=== PATIENT | female | born 1950 | race Caucasian/White ===

== ENCOUNTER 2018-08-31 08:58 | Outpatient (CLI) | payer MEDICARE, MEDICAID ==
[2018-08-31 10:51] LABS: #Eosinphils 0.3 thou/uL (0.0-0.7); #Monocytes 0.8 thou/uL (0.11-0.59); #Neutrophils 6.4 thou/uL (1.40-6.50); %Basophils 0.1 % (0.0-1.0); %Eosinophils 3.6 % (0.0-10.0); %Lymphocytes 20.8 % (21.0-51.0); %Monocytes 8.6 % (0.0-10.0); %Neutrophils 66.8 % (42.0-75.0); Hemoglobin 13.7 g/dL (12.0-16.0); Mean Corpuscular HGB CONC 33.3 g/dL (32.0-36.0); Mean Corpuscular Hemoglobin 32.8 pg (27.0-31.0); Mean Corpuscular Volume 98.5 fL (78.0-98.0); Mean Platelet Volume 7.4 fL (7.4-10.4); Platelet Count 309 thou/uL (130-400); RBC Distribution Width 11.7 % (11.5-14.5); Red Blood Cell (RBC) Count 4.18 mill/uL (4.20-5.40); White Blood Cell (WBC) Count 9.5 thou/uL (4.8-10.8)
[2018-08-31 10:55] LABS: INR-International Normal Ratio 1.1; PTT 25.8 SEC (22.9-36.1); Prothrombin Time 13.9 SEC (12.0-14.7)
[2018-08-31 11:14] LABS: ALT (SGPT) 30 U/L (8-55); AST (SGOT) 25 U/L (5-34); Albumin 3.9 g/dL (3.4-4.8); Alkaline Phosphatase 115 U/L (40-150); Anion Gap 14 mmol/L (10-20); BUN (Urea Nitrogen) 13 mg/dL (9.8-20.1); Bilirubin, Total 1.3 mg/dL (0.2-1.2); Calc. Creatinine Clearance 0 mL/min (70-130); Calcium 9.1 mg/dL (7.8-10.44); Carbon Dioxide 27 mmol/L (23-31); Chloride 102 mmol/L (98-107); Estimated GFR-MDRD 72; Globulin 3.1 g/dL (2.4-3.5); Glucose 133 mg/dL (80-115); Potassium 3.5 mmol/L (3.5-5.1); Sodium 139 mmol/L (136-145)
== END 2018-08-31 08:59 | disposition home or self-care (01) ==
LOC: LABBT 08:58
PROVIDERS: ATTEND Internal Medicine Cardiovascular Disease
DX: Z01.812 Encounter for preprocedural laboratory examination (principal)
CPT/HCPCS: 80053; 85025; 85610; 85730

== ENCOUNTER → 2018-09-01 | Day surgery (SDC) | payer MEDICARE, MEDICAID ==
[2018-08-31 09:27] VITALS: BMI 35.4
[~2018-09-01] MED LIST: Diazepam 5 MG TAB ONE; Fentanyl 100 MCG/2 ML VIAL ONE; Iopamidol 370 76% 100 ML VIAL ONE; Midazolam HCl 2 mg/2 ml Vial ONE; Nitroglycerin 100MG/250ML BOT 250 ML ONE; Nitroglycerin 4.9 GM Bottle ONE
== END ==
LOC: CCL 06:16
PROVIDERS: ATTEND Internal Medicine Cardiovascular Disease
PROC: 4A023N7 Measurement of Cardiac Sampling and Pressure, Left Heart, Percutaneous Approach (ICD-10-PCS; principal; 2018-09-01)
PROC: B2111ZZ Fluoroscopy of Multiple Coronary Arteries using Low Osmolar Contrast (ICD-10-PCS; 2018-09-01)
DX: I25.10 Atherosclerotic heart disease of native coronary artery without angina pectoris (principal); I10 Essential (primary) hypertension; I25.2 Old myocardial infarction; E78.00 Pure hypercholesterolemia, unspecified; J98.9 Respiratory disorder, unspecified; G47.30 Sleep apnea, unspecified; Z88.0 Allergy status to penicillin; Z95.5 Presence of coronary angioplasty implant and graft
CPT/HCPCS: 76942; 93458; 99152; C1769; J1644; J2250; J3010; Q9967

== ENCOUNTER 2018-09-07 01:52 | Outpatient (CLI) | payer MEDICARE, MEDICAID ==
--- NOTE | 2018-09-14 17:44 | EKG ---
Test Reason : Blood Pressure : / mmHG Vent. Rate : 072 BPM Atrial Rate : 072 BPM P-R Int : 124 ms QRS Dur : 080 ms QT Int : 402 ms P-R-T Axes : 001 031 048 degrees QTc Int : 440 ms Normal sinus rhythm Low voltage QRS Cannot rule out Anterior infarct , age undetermined Abnormal ECG When compared with ECG of 23-JAN-2016 06:29, Nonspecific T wave abnormality no longer evident in Inferior leads T wave inversion no longer evident in Anterolateral leads QT has shortened Confirmed by BRANDON ARITA (2) on 09/14/2018 5:43:58 PM Referred By: RADHA Confirmed By:BRANDON ARITA
== END 2018-09-07 01:53 | disposition home or self-care (01) ==
LOC: LABBT 01:52
PROVIDERS: ATTEND Thoracic Surgery (Cardiothoracic Vascular Surgery)
DX: Z01.818 Encounter for other preprocedural examination (principal); I25.10 Atherosclerotic heart disease of native coronary artery without angina pectoris
CPT/HCPCS: 93005; 93010

== ENCOUNTER 2018-09-07 10:30 | Inpatient (IN) | payer MEDICARE, MEDICAID ==
[2018-09-08] MEDS ORDERED: Albumin 5% 500 ML ONE ×2 (06:30→10:48)
[2018-09-08] MEDS ORDERED: Vecuronium 10 MG VIAL ONE ×2 (06:34→14:38)
[2018-09-08] MEDS ORDERED: Midazolam HCl 5 mg/5 ml Vial ONE (06:34)
[2018-09-08] MEDS ORDERED: Dexmedetomidine 200 MCG/2 ML VIAL ONE (06:34)
[2018-09-08] MEDS ORDERED: Midazolam HCl 2 mg/2 ml Vial ONE (06:34)
[2018-09-08] MEDS ORDERED: Fentanyl 100 MCG/2 ML VIAL ONE (06:34)
[2018-09-08] MEDS ORDERED: Clindamycin/D5W 900 mg/50 ml Premix Bag ONE (06:44)
[2018-09-08] MEDS ORDERED: Levofloxacin 500 mg/D5W 100 ml Premix Bag ONE (06:44)
[2018-09-08] MEDS ORDERED: Heparin 10,000 UNITS/1 ML VIAL 30,000 UNITS in Sodium Chloride 0.9% 1,000 ML FS SCH (07:00)
[2018-09-08] MEDS ORDERED: Insulin Regular 300 UNITS/3 ML VIAL ONE (07:57)
[2018-09-08 08:11] LABS: Platelet Count 315 thou/uL (130-400)
[2018-09-08 08:17] LABS: EPI 115 SEC (67-199)
[2018-09-08] MEDS ORDERED: Fentanyl 100 MCG/2 ML VIAL SLOW IVP PRN (10:52)
[2018-09-08] MEDS ORDERED: Guaifenesin DM 100-10/5 ML UDCUP PO PRN (10:52)
[2018-09-08] MEDS ORDERED: DOPamine 400 MG/D5W 250 ML 250 ML IVPB PRN (10:52)
[2018-09-08] MEDS ORDERED: hydrALAZINE 20 MG/ML VIAL SLOW IVP PRN (10:52)
[2018-09-08] MEDS ORDERED: Norepinephrine 8 MG/0.9% NS 250 ML IVPB PRN (10:52)
[2018-09-08] MEDS ORDERED: Mag-Al 1200 mg/1200 mg/30 ML UDCUP PO PRN (10:52)
[2018-09-08] MEDS ORDERED: Bisacodyl 10 MG SUPP PR PRN (10:52)
[2018-09-08] MEDS ORDERED: Bisacodyl 5 MG TAB PO PRN (10:52)
[2018-09-08] MEDS ORDERED: PROVENTIL INHALER 6.7 G (200 INHALATIONS) INH PRN (10:52)
[2018-09-08] MEDS ORDERED: Nitroglycerin 50 MG/250 ML BOT 250 ML IVPB PRN (10:52)
[2018-09-08] MEDS ORDERED: Magnesium 2 GM/50 ML 2 GM in Premix Bag 1 BAG IVPB SCH (10:52)
[2018-09-08] MEDS ORDERED: Hetastarch 6% 500 ML 500 ML IVPB PRN (10:52)
[2018-09-08] MEDS ORDERED: Post-Op Insulin Drip Protocol IVPB ONE (10:52)
[2018-09-08] MEDS ORDERED: Acetaminophen 325 MG TAB PO PRN (10:52)
[2018-09-08] MEDS ORDERED: HYDROcodone/Acetaminophen 5/325 mg Tablet PO PRN (10:52)
[2018-09-08] MEDS ORDERED: Ondansetron PF 4 MG/2 ML Vial IVP PRN (10:52)
[2018-09-08 11:05] LABS: #Eosinphils 0.4 thou/uL (0.0-0.7); #Lymphocytes 2.9 thou/uL (1.20-3.40); #Monocytes 0.9 thou/uL (0.11-0.59); %Basophils 0.2 % (0.0-1.0); %Eosinophils 2.6 % (0.0-10.0); %Lymphocytes 19.4 % (21.0-51.0); %Monocytes 5.8 % (0.0-10.0); %Neutrophils 72.1 % (42.0-75.0); Mean Corpuscular HGB CONC 32.9 g/dL (32.0-36.0); Mean Corpuscular Hemoglobin 32.6 pg (27.0-31.0); Mean Corpuscular Volume 99.3 fL (78.0-98.0); Mean Platelet Volume 6.9 fL (7.4-10.4); Platelet Count 285 thou/uL (130-400); RBC Distribution Width 11.9 % (11.5-14.5); Red Blood Cell (RBC) Count 3.68 mill/uL (4.20-5.40); White Blood Cell (WBC) Count 15.2 thou/uL (4.8-10.8)
[2018-09-08 11:07] LABS: INR-International Normal Ratio 1.3; PTT 29.3 SEC (22.9-36.1); Prothrombin Time 16.5 SEC (12.0-14.7)
--- NOTE | 2018-09-08 11:07 | RAD ---
RADIOGRAPH CHEST 1 VIEW: DATE: 09/08/2018 TIME: 10:37 AM HISTORY: 68-year-old female status post open heart surgery COMPARISON: 01/20/2016 FINDINGS: All of the following findings are new compared to the prior study: Left upper lobe streaky pulmonary densities arising from hilum extending laterally, probably subsegme ntal atelectasis. Haziness of right hemidiaphragmatic shadow, probably right pleural effusion and/or right basilar atel ectasis. Right upper lobe is relatively clear. No pneumothorax is identified, but this is a supine image which would be insensitive for pneumothorax detection. Right subclavian central line with distal tip overlying right atrium. Sternotomy wires. Right basilar chest tube takes a loop and hairpin turn at the right medial lower liza ng zone, then descends and extends laterally overlying the right upper abdomen. Right paramedian ascending chest tube. Entire cardiac mediastinal silhouette is widened and shaggy. IMPRESSION: Status post recent open heart surgery with life support lines as above, and pulmonary and pleural acu te findings.
[2018-09-08] MEDS ORDERED: Morphine 2 MG/ML SYRINGE SLOW IVP PRN (11:09)
[2018-09-08] MEDS ORDERED: Dextrose 50% Abboject 50 ML SYRINGE SLOW IVP PRN (11:12)
[2018-09-08] MEDS ORDERED: HUMULIN R 100 UNITS in Sodium Chloride 0.9% 100 ML IVPB SCH (11:12)
[2018-09-08] MEDS ORDERED: Dextrose 5% in Water 1,000 ML IV PRN (11:12)
[2018-09-08 11:23] LABS: Anion Gap 13 mmol/L (10-20); BUN (Urea Nitrogen) 9 mg/dL (9.8-20.1); Calc. Creatinine Clearance 114 mL/min (70-130); Calcium 8.3 mg/dL (7.8-10.44); Carbon Dioxide 20 mmol/L (23-31); Chloride 109 mmol/L (98-107); Estimated GFR-MDRD 79; Glucose 129 mg/dL (80-115); Potassium 4.1 mmol/L (3.5-5.1); Sodium 138 mmol/L (136-145)
[2018-09-08 11:34] LABS: Actual Bicarbonate (HCO3a) 21.5 mEq/L (22-28); Base Excess (BEa) -4.9 mEq/L (-2.0 to +3.0); CO2 Tension 45.4 mmHg (35.0-45.0); Calcium, Ionized 1.05 mmol/L (1.12-1.30); Carboxyhemoglobin (COHb) 0.3 gm% (0.0-3.0); Hemoglobin (Hb) 10.7 g/dL (12.0-16.0); O2 Tension (PaO2) 93.2 mmHg (> 80.0); Potassium - ABG Lab 3.61 mmol/L (3.70-5.30); pH, Arterial 7.29 (7.35-7.45)
[2018-09-08 11:35] LABS: Puncture Site ALINE
[2018-09-08] MEDS: Sodium Chloride 0.9% 1,000 ML IV SCH ×2 (11:39→20:59)
[2018-09-08] MEDS ORDERED: Ketorolac Tromethamine 30 MG/ML VIAL IVP SCH (12:00)
[2018-09-08] MEDS: Fentanyl 100 MCG/2 ML VIAL SLOW IVP PRN ×2 (13:14→21:04)
[2018-09-08] MEDS: Clindamycin/D5W 900 MG in Premix Bag 1 BAG IVPB SCH ×2 (13:54→19:35)
[2018-09-08] MEDS ORDERED: Glycopyrrolate 0.2 MG/ML 5 ML SYRINGE ONE (14:38)
[2018-09-08] MEDS ORDERED: Protamine Sulfate 250 MG/25 ML VIAL ONE (14:38)
[2018-09-08] MEDS ORDERED: Thrombin 5000 UNITS/5 ML VIAL ONE (14:38)
[2018-09-08] MEDS ORDERED: Mannitol 12.5 GM/50 ML ONE (14:38)
[2018-09-08] MEDS ORDERED: ePHEDrine 50 MG/ML VIAL ONE (14:38)
[2018-09-08] MEDS ORDERED: Potassium Chloride 60 MEQ/30 ML VIAL ONE (14:38)
[2018-09-08] MEDS ORDERED: Calcium Chloride 1 GM/10 ML Abboject SYRINGE ONE (14:38)
[2018-09-08] MEDS ORDERED: Dexamethasone 20 MG/5 ML VIAL ONE (14:38)
[2018-09-08] MEDS ORDERED: Aminocaproic Acid 5 GM/20 ML VIAL ONE (14:38)
[2018-09-08] MEDS ORDERED: Magnesium 5 GM/10 ML VIAL ONE (14:38)
[2018-09-08] MEDS ORDERED: Ondansetron PF 4 MG/2 ML Vial ONE (14:38)
[2018-09-08] MEDS ORDERED: Sodium Bicarb 50 MEQ/50 ML VIAL ONE (14:38)
[2018-09-08] MEDS ORDERED: Papaverine 60 MG/2 ML VIAL ONE (14:38)
[2018-09-08] MEDS ORDERED: Esmolol 100 MG/10 ML VIAL ONE (14:38)
[2018-09-08] MEDS ORDERED: Heparin 5,000 UNITS/ML VIAL ONE (14:38)
[2018-09-08] MEDS ORDERED: Heparin 30,000 units/30 ml VIAL ONE (14:38)
[2018-09-08] MEDS ORDERED: Nitroglycerin 50 MG/250 ML BOT ONE (14:38)
[2018-09-08] MEDS ORDERED: Phenylephrine HCL 10 MG/ML VIAL ONE (14:38)
[2018-09-08] MEDS ORDERED: Ketorolac Tromethamine 30 MG/ML VIAL ONE (14:38)
[2018-09-08] MEDS ORDERED: Lidocaine 2% PF 100 mg/5 ml Syringe ONE (14:38)
[2018-09-08] MEDS: Ketorolac Tromethamine 30 MG/ML VIAL IVP SCH ×2 (15:39→22:03)
--- NOTE | 2018-09-08 16:35 | OP ---
DATE OF PROCEDURE: 09/08/2018 PROCEDURES PERFORMED: Coronary artery disease. PROCEDURE PERFORMED: Coronary artery bypass graft x1, left internal mammary artery to the mid left anterior descending. ANESTHESIA: General. FINDINGS: The patient had a large mammary with good flow and an LAD that probably measured 1.5 mm. DESCRIPTION OF PROCEDURE: After adequate anesthesia had been obtained, the patient was prepped and draped. Midline sternotomy incision was carried out. Sternum was divided with a saw, entering the right pleura and one small area distally. Following mammary retractor placement, the left internal mammary artery was harvested, dividing it distally after full heparinization and treating it with intraluminal papaverine. It was then passed posterior to the thymus gland and brought through a hole in the pericardium. Aorta and right atrium were cannulated with aorta just above the pericardial reflection and the aorta being short. Right atrial appendage was rudimentary. Cardiopulmonary bypass was instituted, and the aorta was crossclamped and a liter of cold blood cardioplegia given through the aortic root. Following this, DALY to LAD anastomosis was carried out with a 7-0 Prolene suture. Following completion of this, anastomosis was hemostatic and the pedicle was secured to the myocardium. Cross-clamp was removed and the aortic cardioplegic cannulation site was oversewn with a 5-0 Prolene suture. The patient was weaned from cardiopulmonary bypass. Cannula was removed and the aortic cannula site secured with a Prolene suture. Mediastinal and bilateral pleural drains were placed. Sternum was reapproximated with #7 interrupted wire using vancomycin paste on the sternal edges, platelet rich blood and platelet poor plasma. Subcutaneous tissue and skin were closed in layers. Job ID: [id number]
[2018-09-08 17:13] LABS: Hemoglobin 11.8 g/dL (12.0-16.0)
[2018-09-08 17:24] LABS: Potassium 3.9 mmol/L (3.5-5.1)
[2018-09-08] MEDS: Potassium Chloride 20 MEQ/100 ML PREMIX BAG IVPB PRN (18:27)
[2018-09-08] MEDS: Famotidine/PF 20 mg/2ml Vial SLOW IVP SCH (19:35)
[2018-09-08] MEDS: Atorvastatin Calcium 40 MG TAB PO SCH (20:59)
[2018-09-09] MEDS: Fentanyl 100 MCG/2 ML VIAL SLOW IVP PRN ×4 (00:40→08:18)
[2018-09-09] MEDS: Clindamycin/D5W 900 MG in Premix Bag 1 BAG IVPB SCH ×2 (02:28→08:19)
[2018-09-09] MEDS: Ketorolac Tromethamine 30 MG/ML VIAL IVP SCH ×4 (05:03→22:10)
[2018-09-09 05:57] LABS: #Monocytes 1.3 thou/uL (0.11-0.59); #Neutrophils 11.7 thou/uL (1.40-6.50); %Basophils 0.3 % (0.0-1.0); %Eosinophils 0.2 % (0.0-10.0); %Lymphocytes 7.1 % (21.0-51.0); %Monocytes 9.1 % (0.0-10.0); %Neutrophils 83.2 % (42.0-75.0); Hemoglobin 10.5 g/dL (12.0-16.0); Mean Corpuscular HGB CONC 32.8 g/dL (32.0-36.0); Mean Platelet Volume 7.3 fL (7.4-10.4); Platelet Count 249 thou/uL (130-400); RBC Distribution Width 12.1 % (11.5-14.5); Red Blood Cell (RBC) Count 3.18 mill/uL (4.20-5.40)
[2018-09-09 06:15] LABS: Anion Gap 12 mmol/L (10-20); BUN (Urea Nitrogen) 14 mg/dL (9.8-20.1); Calc. Creatinine Clearance 121 mL/min (70-130); Calcium 7.6 mg/dL (7.8-10.44); Carbon Dioxide 20 mmol/L (23-31); Chloride 110 mmol/L (98-107); Estimated GFR-MDRD 80; Glucose 123 mg/dL (80-115); Sodium 138 mmol/L (136-145)
[2018-09-09] MEDS: Sodium Chloride 0.9% 1,000 ML IV SCH ×2 (07:50→18:51)
--- NOTE | 2018-09-09 07:57 | RAD ---
1 VIEW CHEST: Date: 09/09/18 HISTORY: Status post open heart surgery. COMPARISON: 09/08/18. FINDINGS: Sternotomy wires and right-sided vascular catheter redemonstrated. Stable right-sided chest tube and mediastinal drainage catheter identified. Stable configuration of the cardiac silhouette. Lung volume s are diminished with resultant bibasilar atelectasis. No pneumothorax. IMPRESSION: Findings compatible with recent open heart surgery. POS: OFF
[2018-09-09] MEDS ORDERED: Aspirin 325 MG TAB PO SCH (09:00)
[2018-09-09] MEDS: Polyethylene Glycol 3350 17 GM Packet PO SCH (09:26)
[2018-09-09] MEDS: Famotidine/PF 20 mg/2ml Vial SLOW IVP SCH ×2 (09:26→20:48)
[2018-09-09] MEDS: HYDROcodone/Acetaminophen 5/325 mg Tablet PO PRN ×2 (09:42→20:49)
[2018-09-09] MEDS ORDERED: Insulin Glargine 6 UNITS in Pre-Filled Syringe 1 EACH SC PRN (11:40)
--- NOTE | 2018-09-09 12:29 | CON ---
DATE OF CONSULTATION: HISTORY OF PRESENT ILLNESS: This is a 68-year-old female with history of coronary artery disease, CABG back in 2016, who for about the last couple of weeks had had increasing shortness of breath and some occasional chest pain. She went and got a stress test, was found to have a blockage. They went to try and do a cath last Thursday and tried to put a stent in, but were unsuccessful, so she is postop day one for coronary artery bypass graft x1 in the left internal mammary artery to the mid left anterior descending. The patient reports having some pain, but pain controlled with pain medication. She denies any fever or chills. Denies any acute events overnight. Denies any nausea, vomiting, diarrhea, or constipation. She denies any leg swelling. Chest tube is still in place, draining. Per nurse in no other acute events overnight. PAST MEDICAL HISTORY: She has hypertension, hyperlipidemia, history of coronary artery disease status post CABG back in 2016, asthma, sleep apnea. She also has prediabetes, irritable bowel disease, diarrhea. PAST SURGICAL HISTORY: Include a cholecystectomy back in 2008 and history of CABG back in 2016, history of cardiac cath with stent. ALLERGIES: ALLERGIC TO PENICILLINS. FAMILY HISTORY: Includes hypertension, coronary artery disease, COPD, and end- stage renal disease. SOCIAL HISTORY: She denies smoking, illicit drug use, and reports occasional alcohol use. PHYSICAL EXAMINATION: VITAL SIGNS: Blood pressure 130/57, heart rate of 84, respiratory rate of 23, O2 saturation 100% on room air, and temperature 99.1. GENERAL: The patient is alert and oriented. The patient is in some acute distress from pain. She had recently just received pain medication. HEENT: Atraumatic and normocephalic. PERRLA. Conjunctiva not injected. NECK: Supple. No lymphadenopathy. No thyromegaly. No JVD. CARDIAC: Dressing is in place. No drainage or sign of infection noted. Dressing dry and appropriately tender to palpation. Regular rate and rhythm. No murmurs or gallops noted. Chest tube in place, draining. PULMONARY: Some decreased breath sounds. No crackles or wheezes noted. GI: Abdomen nondistended, nontender to palpation. Bowel sounds positive. No sign of masses. EXTREMITIES: Moves all extremities. No edema noted. NEUROLOGIC: Nonfocal. Normal sensation. Normal motor. PERTINENT LABORATORY DATA: CBC; 14.0, hemoglobin 10.5, hematocrit 32.0, platelet count 249. PT of 16.5, INR of 1.3, APTT was 29.3. Chemistry; sodium 138, potassium 4.0, chloride 110, carbon dioxide 20, anion gap 12, BUN 14, creatinine 0.73, glucose 123, calcium 7.6. Chest x-ray 09/08/2018, showed status post recent open heart surgery with life support as above and pulmonary and pleural acute findings. Chest x-ray 09/09/2018 showed findings compatible with recent open heart surgery. ASSESSMENT AND PLAN: 1. Acute hypoxic respiratory failure, resolving. 2. Coronary artery disease status post one vessel coronary artery bypass graft. 2. Hypertension. 3. Hyperlipidemia. 4. Asthma/sleep apnea. PLAN: The patient will continue on current pain regimen. We will continue on critical care observation for today and will follow recommendations of CV surgery. The patient doing well. Vital signs stable. The patient's O2 saturation is stable. We will need to monitor overnight for any signs of sleep apnea if she does have the history. 70 minutes have been devoted to this patient in various activities. I personally reviewed all imaging studies and laboratory data noted within this document. For fifty percent of this time, I was interacting with the patient at the bedside or coordinating care with the care team. For the remainder of the time I was immediately available to the patient in the hospital unit. Job ID: [id number] MTDD
--- NOTE | 2018-09-09 13:57 | PRG ---
DATE OF SERVICE: 09/09/2018 SUBJECTIVE: Freida is doing well. She is sitting up in the chair. No complaints. OBJECTIVE: VITAL SIGNS: Blood pressure 102 systolic. LUNGS: Clear. CARDIAC: Normal S1 and normal S2. ABDOMEN: Soft and nontender. EXTREMITIES: There is no significant edema. ASSESSMENT: Status post coronary artery bypass grafting, doing well. The patient had successful internal mammary to the LAD. PLAN: Continue current medical regimen. The patient is doing well. Job ID: [id number]
[2018-09-09] MEDS: Insulin Regular 300 UNITS/3 ML VIAL SC PRN ×2 (17:29→23:30)
[2018-09-09] MEDS: Atorvastatin Calcium 40 MG TAB PO SCH (20:48)
[2018-09-10] MEDS: Sodium Chloride 0.9% 1,000 ML IV SCH (02:52)
[2018-09-10] MEDS: Ketorolac Tromethamine 30 MG/ML VIAL IVP SCH (04:17)
[2018-09-10 04:39] LABS: #Basophils 0.1 thou/uL (0.0-0.2); #Eosinphils 0.1 thou/uL (0.0-0.7); #Lymphocytes 2.3 thou/uL (1.20-3.40); #Monocytes 1.5 thou/uL (0.11-0.59); #Neutrophils 8.3 thou/uL (1.40-6.50); %Basophils 0.5 % (0.0-1.0); %Eosinophils 0.8 % (0.0-10.0); %Lymphocytes 18.7 % (21.0-51.0); Hemoglobin 10.3 g/dL (12.0-16.0); Mean Corpuscular HGB CONC 32.4 g/dL (32.0-36.0); Mean Corpuscular Hemoglobin 32.8 pg (27.0-31.0); Mean Platelet Volume 7.2 fL (7.4-10.4); Platelet Count 236 thou/uL (130-400); RBC Distribution Width 12.3 % (11.5-14.5); Red Blood Cell (RBC) Count 3.13 mill/uL (4.20-5.40); White Blood Cell (WBC) Count 12.1 thou/uL (4.8-10.8)
[2018-09-10 04:56] LABS: Anion Gap 10 mmol/L (10-20); BUN (Urea Nitrogen) 20 mg/dL (9.8-20.1); Calc. Creatinine Clearance 111 mL/min (70-130); Calcium 8.1 mg/dL (7.8-10.44); Carbon Dioxide 25 mmol/L (23-31); Chloride 107 mmol/L (98-107); Estimated GFR-MDRD 72; Glucose 124 mg/dL (80-115); Sodium 138 mmol/L (136-145)
[2018-09-10] MEDS: Potassium Chloride 20 MEQ/100 ML PREMIX BAG IVPB PRN (06:11)
[2018-09-10] MEDS ORDERED: HYDROcodone/Acetaminophen 5/325 mg Tablet PO PRN (06:47)
[2018-09-10] MEDS ORDERED: Nitroglycerin 0.4 MG TAB (25 Tab Bottle) SL PRN (06:47)
[2018-09-10] MEDS ORDERED: Guaifenesin DM 100-10/5 ML UDCUP PO PRN (06:47)
[2018-09-10] MEDS ORDERED: Bisacodyl 5 MG TAB PO PRN (06:47)
[2018-09-10] MEDS ORDERED: Mineral Oil ENEMA PR PRN (06:47)
[2018-09-10] MEDS ORDERED: Bisacodyl 10 MG SUPP PR PRN (06:47)
[2018-09-10] MEDS ORDERED: Mag-Al 1200 mg/1200 mg/30 ML UDCUP PO PRN (06:47)
[2018-09-10] MEDS ORDERED: Fentanyl 100 MCG/2 ML VIAL SLOW IVP PRN ×2 (06:47)
[2018-09-10] MEDS ORDERED: Dextrose 5% in Water 1,000 ML IV PRN (06:57)
[2018-09-10] MEDS ORDERED: Dextrose 50% Abboject 50 ML SYRINGE SLOW IVP PRN (06:57)
[2018-09-10] MEDS: HYDROcodone/Acetaminophen 5/325 mg Tablet PO PRN ×3 (07:51→20:41)
[2018-09-10] MEDS ORDERED: Donepezil HCl 10 MG TAB PO SCH (09:00)
[2018-09-10] MEDS ORDERED: Gabapentin 300 MG CAP PO SCH (09:00)
[2018-09-10] MEDS: Ondansetron PF 4 MG/2 ML Vial IVP PRN ×2 (09:19→15:53)
[2018-09-10] MEDS: Potassium Chloride 10 MEQ TAB PO SCH (09:22)
--- NOTE | 2018-09-10 09:24 | RAD ---
PORTABLE CHEST: Date: HISTORY: Respiratory distress. COMPARISON: Prior day's exam. FINDINGS: Heart size is enlarged. There is postop sternotomy change. Right subclavian line is unchanged in posi tion. Some parenchymal changes in the lung bases appear stable. IMPRESSION: Stable exam. POS: TPC
[2018-09-10] MEDS: Aspirin 325 mg Enteric Coated Tablet PO SCH (10:05)
[2018-09-10] MEDS: Furosemide 40 MG TAB PO SCH (10:05)
[2018-09-10] MEDS: Polyethylene Glycol 3350 17 GM Packet PO SCH (10:06)
[2018-09-10] MEDS: Famotidine 20 MG TAB PO SCH ×2 (10:06→20:40)
--- NOTE | 2018-09-10 10:21 | PRG ---
DATE OF SERVICE: 09/10/2018 SUBJECTIVE: Freida feels nauseated. She is sitting up in the chair. OBJECTIVE: VITAL SIGNS: Blood pressure 130/81 and pulse 74 and regular. LUNGS: Clear. CARDIAC: Normal S1, normal S2. ABDOMEN: Soft and nontender. EXTREMITIES: No clubbing or cyanosis. There is no edema. LABORATORY DATA: Hemoglobin is 10.3. Potassium is 4.0. ASSESSMENT: 1. Status post bypass surgery x1. 2. Nausea, postoperative. PLAN: 1. She is receiving Zofran. She is on aspirin. 2. She is on atorvastatin. 3. Pepcid. Job ID: [id number]
[2018-09-10 10:22] VITALS: BMI 37.3
--- NOTE | 2018-09-10 12:07 | CON ---
DATE OF CONSULTATION: 09/09/2018 ADDENDUM: This is an addendum that she would be added to Gunnar Collazo's note. His job number ID was [id number]. I have independently reviewed the history, laboratories, imaging studies, and physical exam at bedside with Dr. Collazo. We have discussed the assessment and formulated the plan. I agree with his documentation except as otherwise noted below. ASSESSMENT: 1. Acute hypoxic respiratory failure. 2. Coronary artery disease, status post coronary artery bypass graft, postop day #1. 70 minutes have been devoted to this patient in very activities. For 50% of the time, I interacted with the patient at bedside or coordinated care with the care team. For the rate remainder of the time, I was immediately available to the patient to the hospital unit. Job ID: [id number]
--- NOTE | 2018-09-10 13:18 | PRG ---
DATE OF SERVICE: 09/10/2018 SERVICE: Pulmonary Medicine. INTERVAL HISTORY: The patient is doing fine from respiratory standpoint. Breathing comfortably. There has been no interval change to her condition. Her chest pain has dramatically improved when the chest tubes were removed. That being said, she still has exquisite discomfort. She had a little bit of a coughing spell this morning, but was short lived. She is having an aversion for food. Every time she takes a sip of water, she has some belching. PHYSICAL EXAMINATION: VITAL SIGNS: Afebrile, pulse 82, blood pressure 117/83, respirations 13, and saturation 95% on 2 L nasal cannula. GENERAL: The patient is awake and alert, in no apparent distress. LUNGS: Decent air entry with dependent crackles, which are minimal. There is no prolonged expiratory phase or wheezing appreciated. HEART: Normal rate and regular. ABDOMEN: Soft, nontender, and nondistended. Bowel sounds are positive. MUSCULOSKELETAL: No cyanosis or clubbing. No pitting in the bilateral lower extremities. NEUROLOGIC: Grossly nonfocal. LABORATORY DATA: WBC 12.1, hemoglobin 10.3, platelets 236,000. INR 1.3. Basic metabolic profile is essentially unremarkable with a creatinine of 0.8. ASSESSMENT: 1. Acute hypoxic respiratory failure. 2. Coronary artery disease, status post coronary artery bypass graft x2 vessels. 3. Obstructive sleep apnea. 4. Asthma. DISCUSSION AND PLAN: The patient is doing fine from respiratory standpoint. At this point, she is stable for transition out of the ICU to the telemetry floor. Nebulized medications will be provided on an as needed basis. We have encouraged mobility through time. At this point, she has no further requirements for inpatient Pulmonary or Critical Care opinion, and I will sign off. Job ID: [id number] [facility]
[2018-09-10] MEDS: Atorvastatin Calcium 40 MG TAB PO SCH (20:40)
[2018-09-11] MEDS ORDERED: Sodium Chloride 0.9% 10 ML ONE (08:34)
[2018-09-11] MEDS: Furosemide 40 MG TAB PO SCH (09:13)
[2018-09-11] MEDS: Famotidine 20 MG TAB PO SCH ×2 (09:13→20:02)
[2018-09-11] MEDS: Aspirin 325 mg Enteric Coated Tablet PO SCH (09:13)
[2018-09-11] MEDS: Potassium Chloride 10 MEQ TAB PO SCH (09:13)
[2018-09-11] MEDS: Polyethylene Glycol 3350 17 GM Packet PO SCH (09:14)
[2018-09-11] MEDS: HYDROcodone/Acetaminophen 5/325 mg Tablet PO PRN (16:24)
[2018-09-11] MEDS: Insulin Regular 300 UNITS/3 ML VIAL SC PRN (17:50)
[2018-09-11] MEDS: Atorvastatin Calcium 40 MG TAB PO SCH (20:02)
[2018-09-11] MEDS: Ibuprofen 200 MG TAB PO SCH (20:03)
[2018-09-12] MEDS: HYDROcodone/Acetaminophen 5/325 mg Tablet PO PRN ×3 (05:34→20:20)
[2018-09-12] MEDS: Ibuprofen 200 MG TAB PO SCH ×3 (05:36→22:08)
[2018-09-12] MEDS ORDERED: Metoprolol Tartrate 25 MG TAB PO SCH (09:19)
[2018-09-12] MEDS ORDERED: Sodium Chloride 0.9% 10 ML ONE (09:20)
[2018-09-12] MEDS: Potassium Chloride 10 MEQ TAB PO SCH (09:41)
[2018-09-12] MEDS: Aspirin 325 mg Enteric Coated Tablet PO SCH (09:42)
[2018-09-12] MEDS: Metoprolol Tartrate 25 MG TAB PO SCH ×2 (09:42→20:19)
[2018-09-12] MEDS: Furosemide 40 MG TAB PO SCH (09:42)
[2018-09-12] MEDS: Polyethylene Glycol 3350 17 GM Packet PO SCH (09:42)
[2018-09-12] MEDS: Famotidine 20 MG TAB PO SCH ×2 (09:42→20:19)
[2018-09-12] MEDS: Insulin Regular 300 UNITS/3 ML VIAL SC PRN ×2 (11:37→18:06)
[2018-09-12] MEDS: Ondansetron PF 4 MG/2 ML Vial IVP PRN (14:47)
[2018-09-12] MEDS: Atorvastatin Calcium 40 MG TAB PO SCH (20:19)
[2018-09-13] MEDS: Ibuprofen 200 MG TAB PO SCH ×3 (05:14→20:45)
[2018-09-13] MEDS: Famotidine 20 MG TAB PO SCH ×2 (09:06→20:45)
[2018-09-13] MEDS: Metoprolol Tartrate 25 MG TAB PO SCH (09:06)
[2018-09-13] MEDS: Furosemide 40 MG TAB PO SCH (09:06)
[2018-09-13] MEDS: Potassium Chloride 10 MEQ TAB PO SCH (09:07)
[2018-09-13] MEDS: Polyethylene Glycol 3350 17 GM Packet PO SCH (09:07)
[2018-09-13] MEDS: Aspirin 325 mg Enteric Coated Tablet PO SCH (09:07)
[2018-09-13] MEDS: Ondansetron PF 4 MG/2 ML Vial IVP PRN (11:21)
[2018-09-13] MEDS: Acetaminophen 325 MG TAB PO PRN (12:27)
[2018-09-13] MEDS: Metoprolol Tartrate 50 MG TAB PO SCH (20:45)
[2018-09-13] MEDS: Atorvastatin Calcium 40 MG TAB PO SCH (20:45)
[2018-09-14] MEDS: Ibuprofen 200 MG TAB PO SCH ×3 (04:25→20:16)
[2018-09-14] MEDS: Acetaminophen 325 MG TAB PO PRN ×2 (04:25→14:23)
[2018-09-14] MEDS: Potassium Chloride 10 MEQ TAB PO SCH (09:04)
[2018-09-14] MEDS: Metoprolol Tartrate 50 MG TAB PO SCH ×2 (09:05→20:16)
[2018-09-14] MEDS: Aspirin 325 mg Enteric Coated Tablet PO SCH (09:05)
[2018-09-14] MEDS: Polyethylene Glycol 3350 17 GM Packet PO SCH (09:05)
[2018-09-14] MEDS: Famotidine 20 MG TAB PO SCH ×2 (09:05→20:16)
[2018-09-14] MEDS: Furosemide 40 MG TAB PO SCH (09:05)
--- NOTE | 2018-09-14 10:48 | PRG ---
DATE OF SERVICE: 09/14/2018 SUBJECTIVE: Ms. Guan is doing better today. She is up walking around. She did have 1 brief episode of nonsustained supraventricular tachycardia for few beats. OBJECTIVE: VITAL SIGNS: Blood pressure 130/60, pulse 77 and regular. LUNGS: Clear. CARDIAC: Normal S1. Normal S2. ABDOMEN: Soft and nontender. ASSESSMENT: 1. Status post bypass surgery, doing well. 2. Brief episode of supraventricular tachycardia, nonsustained. PLAN: 1. Continue beta blockers. 2. Aspirin. 3. Statin therapy. 4. Home soon. Job ID: [id number]
--- NOTE | 2018-09-14 18:22 | EKG ---
Test Reason : POST CABG Blood Pressure : / mmHG Vent. Rate : 072 BPM Atrial Rate : 072 BPM P-R Int : 172 ms QRS Dur : 078 ms QT Int : 456 ms P-R-T Axes : 046 024 049 degrees QTc Int : 499 ms Normal sinus rhythm Prolonged QT Abnormal ECG When compared with ECG of 07-SEP-2018 10:25, (Unconfirmed) QT has lengthened Confirmed by BRANDON ARITA (2) on 09/14/2018 6:21:49 PM Referred By: CLIF Confirmed By:BRANDON ARITA
[2018-09-14] MEDS: Atorvastatin Calcium 40 MG TAB PO SCH (20:16)
[2018-09-15] MEDS: Ibuprofen 200 MG TAB PO SCH (05:33)
[2018-09-15] MEDS: Famotidine 20 MG TAB PO SCH (08:18)
[2018-09-15] MEDS: Potassium Chloride 10 MEQ TAB PO SCH (08:18)
[2018-09-15] MEDS: Furosemide 40 MG TAB PO SCH (08:19)
[2018-09-15] MEDS: Metoprolol Tartrate 50 MG TAB PO SCH (08:19)
[2018-09-15] MEDS: Polyethylene Glycol 3350 17 GM Packet PO SCH (08:19)
[2018-09-15] MEDS: Acetaminophen 325 MG TAB PO PRN (08:19)
[2018-09-15] MEDS: Aspirin 325 mg Enteric Coated Tablet PO SCH (08:19)
[2018-09-15 08:23] VITALS: BP 130/61; TEMP 97.8
== END 2018-09-15 12:42 | DRG 235 ==
LOC: SURG A 09-08 05:58 → CCU 09-08 10:37 → 2NO 09-10 11:34
PROVIDERS: ADMIT Thoracic Surgery (Cardiothoracic Vascular Surgery); ATTEND Thoracic Surgery (Cardiothoracic Vascular Surgery)
PROC: 02100Z9 Bypass Coronary Artery, One Artery from Left Internal Mammary, Open Approach (ICD-10-PCS; principal; 2018-09-08)
PROC: 5A1221Z Performance of Cardiac Output, Continuous (ICD-10-PCS; 2018-09-08)
DX: I25.10 Atherosclerotic heart disease of native coronary artery without angina pectoris (principal); J96.01 Acute respiratory failure with hypoxia; I10 Essential (primary) hypertension; E78.5 Hyperlipidemia, unspecified; J45.909 Unspecified asthma, uncomplicated; R11.0 Nausea; G47.33 Obstructive sleep apnea (adult) (pediatric); Z88.0 Allergy status to penicillin; Z90.49 Acquired absence of other specified parts of digestive tract; Z95.5 Presence of coronary angioplasty implant and graft
CPT/HCPCS: 36415; 36416; 71045; 80048; 82805; 82947; 85025; 85576; 85610; 85730; 86850; 86900; 86901; 93005; 93010; 93798; 94660; J0690; J1100; J1642; J1644; J1815; J1825; J1885; J1956; J2001; J2150; J2250; J2370; J2405; J2440; J2720; J3010; J3370; J3475; J3480; J3490; J7050; P9045; S0017; S0028

== ENCOUNTER 2018-10-15 13:35 | Emergency (ER) | payer MEDICARE, MEDICAID ==
--- NOTE | 2018-10-15 13:59 | RAD ---
EXAM: Single view of the chest HISTORY: Chest pain and confusion COMPARISON: 09/10/2018 FINDINGS: Single view of the chest shows a normal sized cardiomediastinal silhouette. The patient is status post sternotomy. There is no evidence of consolidation, mass, or pleural effusion. The bones are unremarkable. IMPRESSION: No evidence of acute cardiopulmonary disease
[2018-10-15 14:10] LABS: #Eosinphils 0.3 thou/uL (0.0-0.7); #Lymphocytes 1.7 thou/uL (1.20-3.40); #Monocytes 1.2 thou/uL (0.11-0.59); %Basophils 0.3 % (0.0-1.0); %Eosinophils 2.1 % (0.0-10.0); %Lymphocytes 12.9 % (21.0-51.0); %Monocytes 9.1 % (0.0-10.0); %Neutrophils 75.6 % (42.0-75.0); Hemoglobin 12.1 g/dL (12.0-16.0); Mean Corpuscular HGB CONC 31.8 g/dL (32.0-36.0); Mean Corpuscular Hemoglobin 30.7 pg (27.0-31.0); Mean Corpuscular Volume 96.4 fL (78.0-98.0); Platelet Count 338 thou/uL (130-400); RBC Distribution Width 12.1 % (11.5-14.5); Red Blood Cell (RBC) Count 3.93 mill/uL (4.20-5.40); White Blood Cell (WBC) Count 13.2 thou/uL (4.8-10.8)
[2018-10-15 14:37] LABS: ALT (SGPT) 26 U/L (8-55); AST (SGOT) 23 U/L (5-34); Albumin 3.6 g/dL (3.4-4.8); Alkaline Phosphatase 135 U/L (40-150); Anion Gap 13 mmol/L (10-20); BUN (Urea Nitrogen) 13 mg/dL (9.8-20.1); Bilirubin, Total 0.6 mg/dL (0.2-1.2); CK (CPK) 130 U/L (29-168); Calc. Creatinine Clearance 0 mL/min (70-130); Calcium 9.2 mg/dL (7.8-10.44); Carbon Dioxide 25 mmol/L (23-31); Chloride 104 mmol/L (98-107); Estimated GFR-MDRD 71; Globulin 3.6 g/dL (2.4-3.5); Glucose 133 mg/dL (80-115); Lipase 27 U/L (8-78); Potassium 4.2 mmol/L (3.5-5.1); Protein, Total 7.2 g/dL (6.0-8.3); Sodium 138 mmol/L (136-145)
--- NOTE | 2018-10-15 15:33 | CT ---
EXAM: CT angiogram of the chest including 3-D rendering: HISTORY: Chest pain COMPARISON: None FINDINGS: There is adequate opacification of the pulmonary arteries. No evidence for aortic aneurysm or dissection. No convincing CT evidence for acute pulmonary embolism. Small bilateral pleural thickening/pleural effusion. Minimal pericardial effusion. Postop midline sternotomy. Linear parenchymal changes bilaterally including the right middle lobe, lingula, and right lower lobe and left lower lobe in particular. 0.6 cm diameter irregular pleural-based nodule in the lateral right upper lobe. 0.3 cm diameter subpleural nodule in the right lower lobe. 0.3 cm diameter subpleural nodule in the right upper lobe. No evidence for mediastinal mass or adenopathy. Evidence for fatty changes in the liver. IMPRESSION: No convincing CT evidence for acute pulmonary embolism. 0.6 cm diameter irregular pleural-based nodule in the lateral right upper lobe. At least 2 other smaller, 0.3 cm diameter subpleural nodules in the right upper and lower lobe. Minimal linear stranding and pleural thickening bilaterally. Minimal pericardial effusion. Code lung nodule
[2018-10-15 16:16] LABS: Troponin I Less than 0.010 ng/mL (< 0.028)
[2018-10-15 16:18] LABS: Bilirubin Negative (Negative); Blood, Urine Negative (Negative); Clarity Clear (Clear); Glucose, Urine (Dipstick) Normal (Negative); Leukocyte Negative Leu/uL (Negative); Nitrite Negative (Negative); Protein, Urine (Dipstick) 10 mg/dL (Neg-Trace); Urobilinogen Normal mg/dL (Less than 2)
[2018-10-15] MEDS ORDERED: Ibuprofen 200 MG TAB ONE (17:55)
== END 2018-10-15 18:05 | disposition home or self-care (01) ==
LOC: ERS 13:35
DX: J18.9 Pneumonia, unspecified organism (principal); I10 Essential (primary) hypertension; I25.2 Old myocardial infarction; E78.00 Pure hypercholesterolemia, unspecified; E11.9 Type 2 diabetes mellitus without complications; R41.3 Other amnesia; Z79.899 Other long term (current) drug therapy; Z79.82 Long term (current) use of aspirin
CPT/HCPCS: 71045; 71275; 80053; 81003; 82550; 83690; 83880; 84484; 85025; 87086; 93005; 94760

== ENCOUNTER 2018-10-25 15:13 | Outpatient (CLI) | payer MEDICARE, MEDICAID ==
--- NOTE | 2018-10-25 17:08 | BD ---
DEXA SCAN: HISTORY: Osteoporosis screening. Postmenopausal state. COMPARISON: None. FINDINGS: LUMBAR SPINE BMD (g/cm2) T-SCORE Z-SCORE L1 0.919 -0.6 1.0 L2 1.051 0.2 2.0 L3 0.965 -1.1 0.8 L4 0.948 -1.0 1.0 TOTAL 0.971 -0.7 1.2 WHO CLASSIFICATION: Normal. BMD (g/cm2) T-SCORE Z-SCORE LEFT FEMORAL NECK 0.768 -0.7 0.9 TOTAL LEFT HIP 1.031 0.7 2.0 IMPRESSION: Normal bone mineral density. POS: HOME
--- NOTE | 2018-11-10 11:52 | MMO ---
Bilateral MAMMO Bilat Screen DDI+DILCIA. CLINICAL HISTORY: Patient is 68 years old and is seen for screening. The patient has no family history of breast cancer. The patient has no personal history of cancer. VIEWS: The views performed were: bilateral craniocaudal with tomosynthesis and bilateral mediolateral oblique with tomosynthesis. FILMS COMPARED: The present examination has been compared to a prior imaging study performed at [facility] on 06/15/2017. MAMMOGRAM FINDINGS: There are scattered fibroglandular densities. There are stable benign appearing calcifications seen in both breasts. There are no suspicious masses, suspicious calcifications, or new areas of architectural distortion. IMPRESSION: THERE IS NO MAMMOGRAPHIC EVIDENCE OF MALIGNANCY. A ROUTINE FOLLOW-UP MAMMOGRAM IN 1 YEAR IS RECOMMENDED. THE RESULTS OF THIS EXAM WERE SENT TO THE PATIENT. ACR BI-RADS Category 2 - Benign finding MAMMOGRAPHY NOTE: 1. A negative mammogram report should not delay a biopsy if a dominant of clinically suspicious mass is present. 2. Approximately 10% to 15% of breast cancers are not detected by mammography. 3. Adenosis and dense breasts may obscure an underlying neoplasm. Reported by: ALEXANDRA MATA MD Electonically Signed: [id number]
== END 2018-10-25 15:14 | disposition home or self-care (01) ==
LOC: BICMAMMO 15:13
PROVIDERS: ATTEND Family Medicine
DX: Z12.31 Encounter for screening mammogram for malignant neoplasm of breast (principal); Z78.0 Asymptomatic menopausal state; M85.88 Other specified disorders of bone density and structure, other site
CPT/HCPCS: 77063; 77067; 77080

== ENCOUNTER 2018-11-23 13:54 | Outpatient (CLI) | payer MEDICARE, MEDICAID ==
--- NOTE | 2018-11-26 13:55 | PFT ---
PATIENT HISTORY: HEIGHT: 67 in WEIGHT: 197 lbs SMOKER: never HOW LONG: NA PACKS PER DAY: PRODUCTIVE COUGH: LUNG DISEASE: PHYSICIAN INTERPRETATION FINAL REPORT: Patient had good effort and cooperation. PFT data: FVC 2.27 (70%), FEV1 1.68 (68%), FEV1/FVC 0.74. RV 1.82 (89%),TLC 3.77 (71%) Diffusion 13.99 (60%) There is a reduction the FEV1 and the FVC. The ratio is normal suggesting this primally a restrictive process. That being said, the is a significant in the FVC (330 ml, 17%) and the FEV1 (250 ml, 17%) following the administration of a bronchodilator. Residual Volume is normal but the Total Lung Capacity is mildly impaired. Diffusion capacity is mildly impaired but corrects for alveolar ventilation. IMPRESSION: Overall, These pulmonary function studies are most consistent with mild restrictive process with significant improvement following bronchodilator, with reduced lung volumes and moderately impaired that corrects for alveolar ventilation. Clinical and radiographic correlation should be considered. Principal Systems Architect: ANITA Restaurant Front Manager: ANITA GREENE
== END 2018-11-23 13:55 | disposition home or self-care (01) ==
LOC: CP 13:54
PROVIDERS: ATTEND Internal Medicine
DX: R06.00 Dyspnea, unspecified (principal)
CPT/HCPCS: 94060; 94727; 94729

== ENCOUNTER 2018-12-10 09:51 | Outpatient (CLI) | payer MEDICARE, MEDICAID ==
--- NOTE | 2018-12-10 11:52 | MRI ---
MRI brain with and without contrast: DATE: 12/10/2018 HISTORY: 68-year-old female with memory loss TECHNIQUE: Multiplanar, multisequence MRI of the brain obtained pre and post IV injection of gadolinium based co ntrast agent. FINDINGS: There is no obstructive hydrocephalus. There is no midline shift or any other evidence of mass effect . There is no extra-axial fluid collection. There are mild chronic ischemic white matter changes due to microvascular atherosclerosis. There is otherwise no major intra-axial signal abnormality, abn ormal enhancement, mass, recent hemorrhage, or restricted diffusion. IMPRESSION: 1) mild chronic ischemic white matter changes, typical for this age group. 2) otherwise negative
== END 2018-12-10 09:52 | disposition home or self-care (01) ==
LOC: SCSMRI 09:51
PROVIDERS: ATTEND Psychiatry & Neurology Neurology
DX: R41.3 Other amnesia (principal); I67.82 Cerebral ischemia
CPT/HCPCS: 70553; 82565

== ENCOUNTER 2018-12-17 19:30 | Outpatient (CLI) | payer MEDICARE, MEDICAID | END 2018-12-17 19:31 | disposition home or self-care (01) | LOC: SLEEPLAB 19:30 | PROVIDERS: ATTEND Internal Medicine | DX: G47.33 Obstructive sleep apnea (adult) (pediatric) (principal); R09.89 Other specified symptoms and signs involving the circulatory and respiratory systems; R51 Headache; R06.83 Snoring; G47.00 Insomnia, unspecified; R35.1 Nocturia; I10 Essential (primary) hypertension; I25.10 Atherosclerotic heart disease of native coronary artery without angina pectoris | CPT/HCPCS: 95810 ==

== ENCOUNTER 2019-01-10 19:30 | Outpatient (CLI) | payer MEDICARE, MEDICAID | END 2019-01-10 19:31 | disposition home or self-care (01) | LOC: SLEEPLAB 19:30 | PROVIDERS: ATTEND Internal Medicine | DX: G47.33 Obstructive sleep apnea (adult) (pediatric) (principal); I10 Essential (primary) hypertension; I25.10 Atherosclerotic heart disease of native coronary artery without angina pectoris; I51.9 Heart disease, unspecified; R09.89 Other specified symptoms and signs involving the circulatory and respiratory systems; R51 Headache; R06.83 Snoring; G47.00 Insomnia, unspecified; R35.1 Nocturia | CPT/HCPCS: 95811 ==

== ENCOUNTER 2019-04-20 09:55 | Outpatient (CLI) | payer MEDICARE, MEDICAID ==
--- NOTE | 2019-04-20 11:16 | CT ---
CT chest noncontrast HISTORY: Lung nodule. Follow-up. COMPARISON: 10/15/2018. FINDINGS: The 0.6 cm noncalcified nodule abutting the pleura at the posterolateral aspect of the righ t lower lobe is unchanged in size and appearance. Additional nodules, including the 0.5 cm nodule within the far anterior aspect of the right lower lobe and a 0.6 cm pleural-based nodule at the far l ateral aspect of the posterior segment left upper lobe are also stable. No new parenchymal nodules evident. Lungs remain slightly hyperinflated. No pleural fluid, consolidation, or pneumothorax. Lack of contrast limits evaluation of the soft tissues. No bulky mediastinal adenopathy. Coronary art fabricio stent and postoperative changes of the mediastinum are evident. The inferior most image shows an oval calcification at the left renal hilum at the expected location of a nondilated calyx. It measures up to 0.6 cm length on the inferior most image. IMPRESSION: Stable CT appearance of tiny bilateral parenchymal lung nodules. No new lung abnormalitie s. Nonobstructing left renal calculus partially visualized. At least 0.6 cm greatest diameter.
== END 2019-04-20 09:56 | disposition home or self-care (01) ==
LOC: BICCT 09:55
PROVIDERS: ATTEND Internal Medicine
DX: G47.33 Obstructive sleep apnea (adult) (pediatric) (principal); R91.1 Solitary pulmonary nodule; Q79.60 Ehlers-Danlos syndrome, unspecified; J45.909 Unspecified asthma, uncomplicated; R91.8 Other nonspecific abnormal finding of lung field; N20.0 Calculus of kidney
CPT/HCPCS: 71250

== ENCOUNTER 2020-04-03 09:41 | Outpatient (CLI) | payer MEDICARE, MEDICAID ==
--- NOTE | 2020-04-03 10:28 | MMO ---
Bilateral MAMMO Bilat Screen DDI+DILCIA. CLINICAL HISTORY: Patient is 69 years old and is seen for screening. The patient has no family history of breast cancer. The patient has no personal history of cancer. VIEWS: The views performed were: bilateral craniocaudal with tomosynthesis and bilateral mediolateral oblique with tomosynthesis. FILMS COMPARED: The present examination has been compared to prior imaging studies performed at [facility] on 10/25/2018, and at [facility] on 06/15/2017. This study has been interpreted with the assistance of computer-aided detection. MAMMOGRAM FINDINGS: There are scattered fibroglandular densities. There is a stable asymmetry seen in the upper-outer region of the right breast. There are no suspicious masses, suspicious calcifications, or new areas of architectural distortion. IMPRESSION: THERE IS NO MAMMOGRAPHIC EVIDENCE OF MALIGNANCY. A ROUTINE FOLLOW-UP MAMMOGRAM IN 1 YEAR IS RECOMMENDED. THE RESULTS OF THIS EXAM WERE SENT TO THE PATIENT. ACR BI-RADS Category 2 - Benign finding MAMMOGRAPHY NOTE: 1. A negative mammogram report should not delay a biopsy if a dominant of clinically suspicious mass is present. 2. Approximately 10% to 15% of breast cancers are not detected by mammography. 3. Adenosis and dense breasts may obscure an underlying neoplasm. Reported by: WILFRID PATTERSON MD Electonically Signed: [id number]
== END 2020-04-03 09:42 | disposition home or self-care (01) ==
LOC: BICMAMMO 09:41
PROVIDERS: ATTEND Family Medicine
DX: Z12.31 Encounter for screening mammogram for malignant neoplasm of breast (principal)
CPT/HCPCS: 77063; 77067

== ENCOUNTER 2020-08-16 08:49 | Outpatient (CLI) | payer MEDICARE, MEDICAID ==
[2020-08-16 10:31] LABS: Hemoglobin 13.4 g/dL (12.0-15.5); Mean Corpuscular HGB CONC 31.8 g/dL (32.0-36.0); Mean Corpuscular Hemoglobin 31.8 pg (27.0-33.0); Mean Corpuscular Volume 99.8 fl (81.6-98.3); Mean Platelet Volume 9.9 fl (7.4-10.4); Platelet Count 338 10x3/uL (150-450); RBC Distribution Width 13.5 % (11.5-14.5); Red Blood Cell (RBC) Count 4.22 10x6/uL (3.90-5.03); White Blood Cell (WBC) Count 8.4 10x3/uL (3.5-10.5)
[2020-08-16 11:20] LABS: Anion Gap 18 mmol/L (10-20); BUN (Urea Nitrogen) 9 mg/dL (9.8-20.1); Calc. Creatinine Clearance 0 mL/min (70-130); Calcium 9.1 mg/dL (7.8-10.44); Carbon Dioxide 22 mmol/L (23-31); Chloride 106 mmol/L (98-107); Glucose 135 mg/dL (80-115); Potassium 4.3 mmol/L (3.5-5.1); Sodium 142 mmol/L (136-145)
[2020-08-16 16:44] LABS: SARS-CoV-2 PCR by NAA Not Detected (NotDetected)
== END 2020-08-16 08:50 | disposition home or self-care (01) ==
LOC: LABBT 08:49
PROVIDERS: ATTEND Student in an Organized Health Care Education/Training Program
DX: Z01.818 Encounter for other preprocedural examination (principal); Z20.822 Contact with and (suspected) exposure to COVID-19; J34.2 Deviated nasal septum; J34.3 Hypertrophy of nasal turbinates; J34.89 Other specified disorders of nose and nasal sinuses; R09.81 Nasal congestion; H90.3 Sensorineural hearing loss, bilateral; H93.13 Tinnitus, bilateral
CPT/HCPCS: 80048; 85027; 93005; U0003; U0005; 87635; 93010

== ENCOUNTER 2020-08-21 06:52 | Day surgery (SDC) | payer MEDICARE, MEDICAID ==
[2020-08-20 16:16] VITALS: BMI 36.6
[2020-08-21] MEDS ORDERED: AFRIN NASAL MIST 15 ML BOT ONE ×2 (08:45→09:33)
[2020-08-21] MEDS ORDERED: Lidocaine 1% w/Epinephrine 1:100K 20 ML VIAL ONE (09:33)
[2020-08-21] MEDS ORDERED: Bacitracin Zinc Ointment 30 gm TUBE ONE (09:33)
[2020-08-21] MEDS ORDERED: Propofol 500 MG/50 ML VIAL ONE (09:43)
[2020-08-21] MEDS ORDERED: Fentanyl 100 MCG/2 ML VIAL ONE ×2 (09:43→11:38)
[2020-08-21] MEDS ORDERED: Rocuronium Bromide 10 MG/ML (10ML VIAL) ONE (09:50)
[2020-08-21] MEDS ORDERED: ePHEDrine Sulfate 50 MG/10 ML VIAL ONE (09:50)
[2020-08-21] MEDS ORDERED: Lidocaine 1% PF 5 ML VIAL ONE (09:50)
[2020-08-21] MEDS ORDERED: PROPOFOL 200 MG/20 ML VIAL ONE (09:50)
[2020-08-21] MEDS ORDERED: Dexamethasone 20 MG/5 ML VIAL ONE (09:50)
[2020-08-21] MEDS ORDERED: Ondansetron PF 4 MG/2 ML Vial ONE ×2 (09:50→12:34)
[2020-08-21] MEDS ORDERED: Glycopyrrolate 0.2 MG/ML 5 ML SYRINGE ONE (09:50)
[2020-08-21] MEDS ORDERED: PHENYLEPHRINE-NS 100 MCG/ML 10 ML SYRINGE ONE (09:50)
[2020-08-21] MEDS ORDERED: Clindamycin/D5W 900 mg/50 ml Premix Bag ONE (10:08)
[2020-08-21] MEDS ORDERED: SUGAMMADEX SODIUM 200 MG/2 ML VIAL ONE (11:05)
[2020-08-21] MEDS ORDERED: Labetalol HCl 100 MG/20 ML VIAL ONE (12:15)
== END 2020-08-21 15:35 | disposition home or self-care (01) ==
LOC: SDC 06:52
PROVIDERS: ATTEND Student in an Organized Health Care Education/Training Program
PROC: 09SM0ZZ Reposition Nasal Septum, Open Approach (ICD-10-PCS; principal; 2020-08-21)
PROC: 09BL8ZZ Excision of Nasal Turbinate, Via Natural or Artificial Opening Endoscopic (ICD-10-PCS; 2020-08-21)
PROC: 09NM8ZZ Release Nasal Septum, Via Natural or Artificial Opening Endoscopic (ICD-10-PCS; 2020-08-21)
DX: J34.89 Other specified disorders of nose and nasal sinuses (principal); J34.2 Deviated nasal septum; J34.3 Hypertrophy of nasal turbinates; H90.3 Sensorineural hearing loss, bilateral; H93.13 Tinnitus, bilateral; I25.10 Atherosclerotic heart disease of native coronary artery without angina pectoris; I10 Essential (primary) hypertension; E78.5 Hyperlipidemia, unspecified; K21.9 Gastro-esophageal reflux disease without esophagitis; G47.33 Obstructive sleep apnea (adult) (pediatric); E11.9 Type 2 diabetes mellitus without complications; K58.9 Irritable bowel syndrome, unspecified; Z88.0 Allergy status to penicillin
CPT/HCPCS: 36416; C1889; J1100; J2405; J2704; J3010; J3490

== ENCOUNTER 2023-09-18 11:32 | Inpatient (IN) | payer OTHER, MEDICAID ==
[~2023-09-18 11:32] MED LIST changes: -Diazepam 5 MG TAB ONE; -Fentanyl 100 MCG/2 ML VIAL ONE; -Midazolam HCl 2 mg/2 ml Vial ONE; -Nitroglycerin 100MG/250ML BOT 250 ML ONE; -Nitroglycerin 4.9 GM Bottle ONE
[2023-09-18] MEDS ORDERED: Morphine 4 MG/ML VIAL ONE ×3 (11:57→15:31)
[2023-09-18] MEDS ORDERED: Nitroglycerin 2% Ointment 1 INCH/1 GM Packet ONE (11:57)
[2023-09-18 12:14] LABS: #Basophils 0.05 10x3/uL (0.0-0.2); %Basophils 0.4 % (0.0-1.0); %Eosinophils 1.7 % (0.0-10.0); %Lymphocytes 24.3 % (21.0-51.0); %Monocytes 7.1 % (0.0-10.0); Hematocrit 43.7 % (36.0-47.0); Hemoglobin 14.3 g/dL (12.0-16.0); Mean Corpuscular HGB CONC 32.7 g/dL (32.0-36.0); Mean Corpuscular Volume 97.8 fL (78.0-98.0); Mean Platelet Volume 9.9 fL (7.4-10.4); Platelet Count 393 10x3/uL (130-400); RBC Distribution Width 13.1 % (11.5-14.5); Red Blood Cell (RBC) Count 4.47 mill/uL (4.20-5.40)
[2023-09-18] MEDS ORDERED: Iopamidol-370 76% 500 ML MDV (1 ML CHARGE) ONE (12:17)
[2023-09-18 12:34] LABS: Troponin I 0.022 ng/mL (< 0.028)
[2023-09-18 12:35] LABS: ALT (SGPT) 27 U/L (8-55); AST (SGOT) 65 U/L (5-34); Albumin 3.5 g/dL (3.4-4.8); Alkaline Phosphatase 98 U/L (40-110); Anion Gap 20 mmol/L (10-20); BUN (Urea Nitrogen) 14 mg/dL (9.8-20.1); Bilirubin, Total 0.9 mg/dL (0.2-1.2); Calc. Creatinine Clearance 0 mL/min (70-130); Calcium 9.9 mg/dL (7.8-10.44); Carbon Dioxide 20 mmol/L (23-31); Chloride 100 mmol/L (98-107); Estimated GFR 68; Globulin 4.4 g/dL (2.4-3.5); Glucose 404 mg/dL (83-110); Lipase 26 U/L (8-78); Magnesium 1.8 mg/dL (1.6-2.6); Potassium 4.3 mmol/L (3.5-5.1); Protein, Total 7.9 g/dL (5.8-8.1); Sodium 136 mmol/L (136-145)
[2023-09-18] MEDS ORDERED: Insulin Regular, Human 100 UNIT/ML 10 ML VIAL ONE (13:18)
[2023-09-18 15:04] LABS: Critical Call Chem Troponin I NUR.EEF@1503
[2023-09-18] MEDS ORDERED: Heparin 10,000 UNITS/ 10 ML VIAL ONE (15:34)
[2023-09-18] MEDS ORDERED: Atropine Sulfate 1 mg/10 ml Syringe ONE (15:35)
[2023-09-18 15:43] LABS: INR-International Normal Ratio 1.1; PTT 25.5 sec (22.9-36.1); Prothrombin Time 14.6 sec (12.0-14.7)
[2023-09-18 15:44] LABS: #Basophils 0.05 10x3/uL (0.0-0.2); %Basophils 0.4 % (0.0-1.0); %Eosinophils 0.3 % (0.0-10.0); %Lymphocytes 13.1 % (21.0-51.0); %Monocytes 5.7 % (0.0-10.0); Hemoglobin 13.1 g/dL (12.0-16.0); Mean Corpuscular Hemoglobin 32.3 pg (27.0-31.0); Mean Platelet Volume 9.8 fL (7.4-10.4); Platelet Count 319 10x3/uL (130-400); RBC Distribution Width 13.2 % (11.5-14.5); Red Blood Cell (RBC) Count 4.06 mill/uL (4.20-5.40)
[2023-09-18 15:45] LABS: ALT (SGPT) 27 U/L (8-55); AST (SGOT) 81 U/L (5-34); Albumin 3.1 g/dL (3.4-4.8); Alkaline Phosphatase 86 U/L (40-110); Anion Gap 16 mmol/L (10-20); BUN (Urea Nitrogen) 13 mg/dL (9.8-20.1); Bilirubin, Total 0.8 mg/dL (0.2-1.2); Calc. Creatinine Clearance 0 mL/min (70-130); Calcium 8.9 mg/dL (7.8-10.44); Carbon Dioxide 19 mmol/L (23-31); Chloride 105 mmol/L (98-107); Estimated GFR 82; Globulin 3.8 g/dL (2.4-3.5); Glucose 305 mg/dL (83-110); Potassium 4.5 mmol/L (3.5-5.1); Protein, Total 6.9 g/dL (5.8-8.1); Sodium 135 mmol/L (136-145)
[2023-09-18 16:03] LABS: Critical Call Chem Troponin I NUR.JMM4@1603; Troponin I 1.794 ng/mL (< 0.028)
[2023-09-18 17:30] VITALS: BMI 34.7
[2023-09-18] MEDS ORDERED: Sodium Chloride 0.9% 1,000 ML IV SCH (19:30)
[2023-09-18] MEDS ORDERED: Heparin 25,000 units/D5W 500 ML IV SCH (19:45)
[2023-09-18 20:20] LABS: Troponin I 8.984 ng/mL (< 0.028)
[2023-09-18] MEDS: Ondansetron PF 4 MG/2 ML Vial IVP PRN (20:40)
[2023-09-18] MEDS: Insulin Regular, Human 100 UNIT/ML 10 ML VIAL SC PRN (20:47)
[2023-09-18] MEDS: Carvedilol 6.25 MG TAB PO SCH (21:06)
[2023-09-18] MEDS: Lisinopril 5 MG TAB PO SCH (21:07)
[2023-09-18] MEDS: Acetaminophen/Codeine 30-300mg Tablet PO PRN (21:08)
[2023-09-18] MEDS: Heparin 10,000 UNITS/ 10 ML VIAL SLOW IVP SCH (21:45)
[2023-09-18] MEDS: Nitroglycerin 50 MG/250 ML BOT 250 ML IVPB SCH (22:44)
[2023-09-19 00:47] LABS: Troponin I 13.003 ng/mL (< 0.028)
[2023-09-19 04:04] LABS: #Basophils Less than 0.03 10x3/uL (0.0-0.2); #Eosinphils Less than 0.03 10x3/uL (0.0-0.7); %Basophils 0.2 % (0.0-1.0); %Lymphocytes 13.5 % (21.0-51.0); %Monocytes 6.8 % (0.0-10.0); Hematocrit 36.8 % (36.0-47.0); Mean Corpuscular HGB CONC 32.6 g/dL (32.0-36.0); Mean Corpuscular Hemoglobin 31.6 pg (27.0-31.0); Mean Corpuscular Volume 96.8 fL (78.0-98.0); Mean Platelet Volume 9.8 fL (7.4-10.4); Platelet Count 323 10x3/uL (130-400); RBC Distribution Width 13.3 % (11.5-14.5)
[2023-09-19 04:25] LABS: Anion Gap 13 mmol/L (10-20); BUN (Urea Nitrogen) 12 mg/dL (9.8-20.1); Calc. Creatinine Clearance 115 mL/min (70-130); Calcium 8.6 mg/dL (7.8-10.44); Carbon Dioxide 21 mmol/L (23-31); Chloride 105 mmol/L (98-107); Estimated GFR 93; Glucose 262 mg/dL (83-110); Potassium 4.2 mmol/L (3.5-5.1); Sodium 135 mmol/L (136-145)
[2023-09-19] MEDS: Mometasone 100 MCG/Formoterol 5 MCG 120 PUFF INHALER INH SCH (07:49)
[2023-09-19] MEDS: Aspirin Chewable 81 MG TAB PO SCH (09:07)
[2023-09-19] MEDS: Atorvastatin Calcium 40 MG TAB PO SCH (09:08)
[2023-09-19] MEDS ORDERED: Morphine 4 MG/ML VIAL SLOW IVP PRN (09:50)
[2023-09-19] MEDS ORDERED: Dextrose 50% Abboject 50 ML SYRINGE SLOW IVP PRN (10:29)
[2023-09-19] MEDS: Pioglitazone HCl 15 MG TAB PO SCH (10:29)
[2023-09-19] MEDS ORDERED: Dextrose 5% in Water 1,000 ML IV PRN (10:29)
[2023-09-19] MEDS ORDERED: Glucagon 1 MG/ML KIT IM PRN (10:29)
[2023-09-19] MEDS ORDERED: Insulin Regular 300 UNITS/3 ML VIAL SC PRN (11:27)
[2023-09-19 11:36] LABS: Critical Call Chem Troponin I SURG.MPE@1136; Troponin I 17.162 ng/mL (< 0.028)
[2023-09-19] MEDS: Clopidogrel Bisulfate 75 MG TAB PO SCH (12:33)
[2023-09-19] MEDS: Morphine 4 MG/ML VIAL SLOW IVP PRN (15:30)
[2023-09-19] MEDS: Acetaminophen/Codeine 30-300mg Tablet PO PRN (20:25)
[2023-09-19] MEDS: Nitroglycerin 0.4 MG TAB (25 Tab Bottle) SL PRN (20:27)
[2023-09-20 04:49] LABS: #Basophils Less than 0.03 10x3/uL (0.0-0.2); %Basophils 0.2 % (0.0-1.0); %Eosinophils 0.3 % (0.0-10.0); %Monocytes 9.7 % (0.0-10.0); %Neutrophils 74.2 % (42.0-75.0); Hematocrit 39.3 % (36.0-47.0); Hemoglobin 12.6 g/dL (12.0-16.0); Mean Corpuscular HGB CONC 32.1 g/dL (32.0-36.0); Mean Corpuscular Hemoglobin 32.1 pg (27.0-31.0); Mean Platelet Volume 9.9 fL (7.4-10.4); Platelet Count 266 10x3/uL (130-400); RBC Distribution Width 13.2 % (11.5-14.5); Red Blood Cell (RBC) Count 3.93 mill/uL (4.20-5.40)
[2023-09-20 05:09] LABS: Anion Gap 14 mmol/L (10-20); BUN (Urea Nitrogen) 10 mg/dL (9.8-20.1); Calc. Creatinine Clearance 114 mL/min (70-130); Calcium 8.7 mg/dL (7.8-10.44); Carbon Dioxide 22 mmol/L (23-31); Chloride 101 mmol/L (98-107); Estimated GFR 93; Glucose 211 mg/dL (83-110); Magnesium 1.7 mg/dL (1.6-2.6); Potassium 3.8 mmol/L (3.5-5.1); Sodium 133 mmol/L (136-145)
[2023-09-20 05:17] LABS: Hemoglobin A1c 9.9 % (4.0-6.0)
[2023-09-20] MEDS: Clopidogrel Bisulfate 75 MG TAB PO SCH (09:14)
[2023-09-20] MEDS: Insulin Glargine 30 UNITS/0.3 ML VIAL SC SCH (10:45)
[2023-09-20 14:22] LABS: Critical Call Chem Troponin I ICU.VW@1422; Troponin I 29.229 ng/mL (< 0.028)
[2023-09-20] MEDS ORDERED: Empagliflozin 10 MG TAB PO SCH (16:00)
[2023-09-20] MEDS: Enoxaparin 100 MG (1 mL) SYRINGE SC SCH (16:38)
[2023-09-20] MEDS: Empagliflozin 10 MG TAB PO SCH (16:38)
[2023-09-20] MEDS: Polyethylene Glycol 3350 17 GM Packet PO SCH (18:24)
[2023-09-20] MEDS: Senokot S 8.6-50 MG TAB PO SCH (18:24)
[2023-09-21 06:25] LABS: #Basophils 0.03 10x3/uL (0.0-0.2); %Basophils 0.3 % (0.0-1.0); %Eosinophils 0.8 % (0.0-10.0); %Lymphocytes 18.1 % (21.0-51.0); %Monocytes 11.6 % (0.0-10.0); %Neutrophils 68.9 % (42.0-75.0); Hematocrit 37.6 % (36.0-47.0); Hemoglobin 11.9 g/dL (12.0-16.0); Mean Corpuscular HGB CONC 31.6 g/dL (32.0-36.0); Mean Corpuscular Hemoglobin 32.3 pg (27.0-31.0); Mean Corpuscular Volume 102.2 fL (78.0-98.0); Platelet Count 261 10x3/uL (130-400); RBC Distribution Width 13.5 % (11.5-14.5); Red Blood Cell (RBC) Count 3.68 mill/uL (4.20-5.40)
[2023-09-21 06:47] LABS: Anion Gap 14 mmol/L (10-20); BUN (Urea Nitrogen) 9 mg/dL (9.8-20.1); Calc. Creatinine Clearance 117 mL/min (70-130); Calcium 8.6 mg/dL (7.8-10.44); Carbon Dioxide 21 mmol/L (23-31); Chloride 104 mmol/L (98-107); Estimated GFR 94; Glucose 153 mg/dL (83-110); Potassium 4.2 mmol/L (3.5-5.1); Sodium 135 mmol/L (136-145)
[2023-09-21] MEDS: Enoxaparin 100 MG (1 mL) SYRINGE SC SCH (08:25)
[2023-09-21] MEDS: Insulin Glargine 30 UNITS/0.3 ML VIAL SC SCH (08:25)
[2023-09-21] MEDS: Senokot S 8.6-50 MG TAB PO SCH (08:26)
[2023-09-21] MEDS: Empagliflozin 10 MG TAB PO SCH (08:27)
[2023-09-21] MEDS: Polyethylene Glycol 3350 17 GM Packet PO SCH (08:27)
[2023-09-21 15:12] LABS: Critical Call Chem Troponin I low@1510; Troponin I 18.298 ng/mL (< 0.028)
[2023-09-21] MEDS: Bisacodyl 5 MG TAB PO SCH (17:44)
[2023-09-22 05:06] LABS: #Basophils Less than 0.03 10x3/uL (0.0-0.2); %Basophils 0.2 % (0.0-1.0); %Eosinophils 1.7 % (0.0-10.0); %Lymphocytes 16.9 % (21.0-51.0); %Monocytes 10.6 % (0.0-10.0); %Neutrophils 70.1 % (42.0-75.0); Hematocrit 36.3 % (36.0-47.0); Hemoglobin 11.9 g/dL (12.0-16.0); Mean Corpuscular HGB CONC 32.8 g/dL (32.0-36.0); Mean Corpuscular Hemoglobin 32.6 pg (27.0-31.0); Mean Corpuscular Volume 99.5 fL (78.0-98.0); Platelet Count 264 10x3/uL (130-400); RBC Distribution Width 13.3 % (11.5-14.5); Red Blood Cell (RBC) Count 3.65 mill/uL (4.20-5.40)
[2023-09-22 05:40] LABS: Anion Gap 12 mmol/L (10-20); BUN (Urea Nitrogen) 12 mg/dL (9.8-20.1); Calc. Creatinine Clearance 115 mL/min (70-130); Calcium 8.4 mg/dL (7.8-10.44); Carbon Dioxide 24 mmol/L (23-31); Chloride 100 mmol/L (98-107); Estimated GFR 94; Glucose 148 mg/dL (83-110); Potassium 3.6 mmol/L (3.5-5.1); Sodium 132 mmol/L (136-145)
[2023-09-22] MEDS: Enoxaparin 40 MG (0.4 mL) SYRINGE SC SCH (08:05)
[2023-09-22] MEDS: Insulin Glargine 30 UNITS/0.3 ML VIAL SC SCH (12:48)
[2023-09-22] MEDS: Carvedilol 6.25 MG TAB PO SCH (21:26)
[2023-09-23 05:38] LABS: #Basophils 0.03 10x3/uL (0.0-0.2); %Basophils 0.3 % (0.0-1.0); %Eosinophils 2.6 % (0.0-10.0); %Lymphocytes 19.8 % (21.0-51.0); %Monocytes 11.9 % (0.0-10.0); %Neutrophils 64.9 % (42.0-75.0); Hematocrit 36.2 % (36.0-47.0); Hemoglobin 11.8 g/dL (12.0-16.0); Mean Corpuscular HGB CONC 32.6 g/dL (32.0-36.0); Mean Corpuscular Hemoglobin 31.5 pg (27.0-31.0); Mean Corpuscular Volume 96.5 fL (78.0-98.0); Mean Platelet Volume 9.9 fL (7.4-10.4); Platelet Count 304 10x3/uL (130-400); RBC Distribution Width 13.3 % (11.5-14.5); Red Blood Cell (RBC) Count 3.75 mill/uL (4.20-5.40)
[2023-09-23 05:43] LABS: Anion Gap 16 mmol/L (10-20); BUN (Urea Nitrogen) 12 mg/dL (9.8-20.1); Calc. Creatinine Clearance 120 mL/min (70-130); Calcium 8.6 mg/dL (7.8-10.44); Carbon Dioxide 21 mmol/L (23-31); Chloride 102 mmol/L (98-107); Estimated GFR 95; Glucose 139 mg/dL (83-110); Potassium 3.6 mmol/L (3.5-5.1); Sodium 135 mmol/L (136-145)
[2023-09-23 15:41] VITALS: BP 114/65; TEMP 98.9
== END 2023-09-23 18:25 | disposition home or self-care (01) | DRG 281 ==
LOC: ERS 11:32 → CCU 16:19 → 2SW 09-21 21:10
PROVIDERS: ADMIT Internal Medicine Cardiovascular Disease; ATTEND Internal Medicine
PROC: 4A023N7 Measurement of Cardiac Sampling and Pressure, Left Heart, Percutaneous Approach (ICD-10-PCS; principal; 2023-09-18)
PROC: B2051ZZ Plain Radiography of Left Heart using Low Osmolar Contrast (ICD-10-PCS; 2023-09-18)
DX: I21.09 ST elevation (STEMI) myocardial infarction involving other coronary artery of anterior wall (principal); E87.1 Hypo-osmolality and hyponatremia; I50.40 Unspecified combined systolic (congestive) and diastolic (congestive) heart failure; E78.00 Pure hypercholesterolemia, unspecified; I11.0 Hypertensive heart disease with heart failure; J44.9 Chronic obstructive pulmonary disease, unspecified; I25.10 Atherosclerotic heart disease of native coronary artery without angina pectoris; E66.9 Obesity, unspecified; K59.00 Constipation, unspecified; E11.65 Type 2 diabetes mellitus with hyperglycemia; I08.1 Rheumatic disorders of both mitral and tricuspid valves; M54.50 Low back pain, unspecified; I25.2 Old myocardial infarction; Z81.8 Family history of other mental and behavioral disorders; Z82.49 Family history of ischemic heart disease and other diseases of the circulatory system; Z84.1 Family history of disorders of kidney and ureter; Z80.8 Family history of malignant neoplasm of other organs or systems; Z90.49 Acquired absence of other specified parts of digestive tract; Z90.89 Acquired absence of other organs; Z88.0 Allergy status to penicillin; Z68.34 Body mass index [BMI] 34.0-34.9, adult; Z95.5 Presence of coronary angioplasty implant and graft; Z95.1 Presence of aortocoronary bypass graft; Z79.84 Long term (current) use of oral hypoglycemic drugs; Z79.899 Other long term (current) drug therapy; Z79.4 Long term (current) use of insulin
CPT/HCPCS: 36415; 36416; 71045; 71275; 74018; 74174; 80048; 80053; 82010; 83036; 83690; 83735; 83880; 84484; 85025; 85347; 85610; 85730; 93005; 93010; 93306; 93458; 93459; 93798; 94760; 96374; 96375; 96376; C1769; J0461; J1644; J1650; J1815; J2270; J2405; Q9967